=== PATIENT | female | born 1945 | race African-American/Black ===

== ENCOUNTER 2019-09-25 20:48 | Observation (INO) | payer MEDICARE ==
[2019-09-25] MEDS ORDERED: niCARdipine 20MG In NaCl 20 MG/200 ML BAG ONE (20:58)
[2019-09-25] MEDS ORDERED: Ondansetron ODT 4 MG TAB PO PRN (21:22)
[2019-09-25] MEDS ORDERED: Acetaminophen 325 MG TAB PO PRN (21:22)
[2019-09-25 22:00] LABS: #Lymphocytes 1.5 thou/uL (1.20-3.40); #Monocytes 0.7 thou/uL (0.11-0.59); #Neutrophils 4.4 thou/uL (1.40-6.50); %Basophils 0.4 % (0.0-1.0); %Eosinophils 0.6 % (0.0-10.0); %Lymphocytes 22.5 % (21.0-51.0); %Monocytes 10.2 % (0.0-10.0); %Neutrophils 66.2 % (42.0-75.0); Mean Corpuscular HGB CONC 31.5 g/dL (32.0-36.0); Mean Corpuscular Hemoglobin 27.7 pg (27.0-31.0); Mean Corpuscular Volume 87.9 fL (78.0-98.0); Mean Platelet Volume 9.9 fL (7.4-10.4); Platelet Count 193 thou/uL (130-400); RBC Distribution Width 15.7 % (11.5-14.5); Red Blood Cell (RBC) Count 5.77 mill/uL (4.20-5.40); White Blood Cell (WBC) Count 6.7 thou/uL (4.8-10.8)
[2019-09-25 22:11] LABS: ALT (SGPT) 8 U/L (8-55); AST (SGOT) 17 U/L (5-34); Albumin 3.9 g/dL (3.4-4.8); Alkaline Phosphatase 102 U/L (40-110); Anion Gap 14 mmol/L (10-20); BUN (Urea Nitrogen) 18 mg/dL (9.8-20.1); Bilirubin, Total 0.5 mg/dL (0.2-1.2); Calc. Creatinine Clearance 0 mL/min (70-130); Calcium 9.4 mg/dL (7.8-10.44); Carbon Dioxide 28 mmol/L (23-31); Chloride 98 mmol/L (98-107); Estimated GFR-MDRD 87; Globulin 3.5 g/dL (2.4-3.5); Glucose 130 mg/dL (83-110); Potassium 4.2 mmol/L (3.5-5.1); Protein, Total 7.4 g/dL (6.0-8.3); Sodium 136 mmol/L (136-145)
--- NOTE | 2019-09-25 22:49 | HP ---
CHIEF COMPLAINT: Dizziness. HISTORY OF PRESENT ILLNESS: Ms. Ferreira is a 73-year-old female with past medical history of rheumatoid arthritis, presented to [facility] with dizziness, nausea, vomiting, and headache. On arrival to the emergency room, blood pressure was 281/139. CT of the brain was reported as normal. The patient denies chest pain. Initially in the emergency room in [place], the patient received IV labetalol. When the patient arrived to our emergency department, her blood pressure was 222/115. The patient was started on IV Cardene drip. Symptoms are slightly improving. Cardiac enzymes were not ordered, just ordered now, would follow the results. Chest x-ray also was not done earlier. We will order and follow the results. The patient is being admitted to hospital for further management. PAST MEDICAL HISTORY: Rheumatoid arthritis. PAST SURGICAL HISTORY: Reviewed and not pertinent. FAMILY HISTORY: Reviewed and noncontributory. SOCIAL HISTORY: She is a smoker, smokes 1 pack per day. Denies alcohol drinking or drug abuse. HOME MEDICATIONS: Please see home medication reconciliation form for updated medications. ALLERGIES: NO KNOWN ALLERGIES. REVIEW OF SYSTEMS: Review of 14 systems negative except what is mentioned in history of present illness. PHYSICAL EXAMINATION: VITAL SIGNS: Blood pressure is 194/111, pulse is 62, respiratory rate is 22, oxygen saturation 97% on room air. HEAD AND NECK: Normocephalic, atraumatic. NECK: Supple. No JVD. CHEST: Fair bilateral air entry. HEART: S1, S2. Regular. ABDOMEN: Soft, nontender. Bowel sounds present. NEUROLOGIC: Awake, alert, and oriented x3. No focal neurological deficit. PSYCHIATRIC: Unable to assess. EXTREMITIES: No clubbing, no cyanosis. GENITOURINARY: No suprapubic tenderness. No flank tenderness. LABORATORY DATA: WBC 5.5, hemoglobin 16.7, platelets 244. Sodium 140, potassium 4.0, BUN 19, creatinine 0.8. CT of the brain as mentioned above in history of present illness. EKG showed left ventricular hypertrophy. ASSESSMENT: 1. Hypertensive emergency. 2. Dizziness. 3. Headache. 4. Rheumatoid arthritis. 5. Cigarette smoker. PLAN: 1. Admit to CCU. 2. Continue with IV Cardene drip, target systolic blood pressure 180 to 190. 3. Troponins, cardiac enzymes just ordered, to follow the results. 4. Chest x-ray ordered, to follow the results. 5. Reconcile home medications. 6. DVT prophylaxis as appropriate. 7. Expected length of stay, 2 midnights or more. Job ID: [id number]
[2019-09-25 22:51] LABS: CKMB 4.1 ng/mL (0-6.6)
[2019-09-25] MEDS ORDERED: niCARdipine 25 MG in Sodium Chloride 0.9% 250 ML 240 ML IVPB SCH (23:00)
[2019-09-25 23:12] VITALS: BMI 20.2
[2019-09-26 04:28] LABS: Band 4 % (5-11); Hemoglobin 14.8 g/dL (12.0-16.0); Lymphocytes 26 % (21-51); MDiff Complete? YES; Mean Corpuscular HGB CONC 31.2 g/dL (32.0-36.0); Mean Corpuscular Hemoglobin 27.7 pg (27.0-31.0); Mean Corpuscular Volume 88.8 fL (78.0-98.0); Mean Platelet Volume 10.3 fL (7.4-10.4); Monocytes 13 % (0-10); Neutrophil 57 % (42-75); Platelet Count 185 thou/uL (130-400); Platelet Morphology Comment Appears Adequate; RBC Distribution Width 15.7 % (11.5-14.5); Red Blood Cell (RBC) Count 5.33 mill/uL (4.20-5.40); White Blood Cell (WBC) Count 5.8 thou/uL (4.8-10.8)
[2019-09-26 04:29] LABS: Anion Gap 13 mmol/L (10-20); BUN (Urea Nitrogen) 21 mg/dL (9.8-20.1); Calc. Creatinine Clearance 54 mL/min (70-130); Carbon Dioxide 26 mmol/L (23-31); Chloride 103 mmol/L (98-107); Estimated GFR-MDRD Greater than 90; Glucose 108 mg/dL (83-110); Potassium 3.7 mmol/L (3.5-5.1); Sodium 138 mmol/L (136-145)
[2019-09-26 04:32] LABS: Troponin I 0.039 ng/mL (< 0.028)
[2019-09-26 07:10] LABS: Troponin I 0.036 ng/mL (< 0.028)
--- NOTE | 2019-09-26 07:39 | RAD ---
FRONTAL RADIOGRAPH CHEST: DATE: 09/25/2019. COMPARISON: None. HISTORY: Dizziness with nausea, headache, and hypertension. FINDINGS: Increased linear interstitial density noted in the perihilar regions in both lung bases, left greater than right. Findings may be on the basis of interstitial edema or interstitial infectious pneumonit is. No lobar consolidation, pneumothorax, or large volume pleural effusion. There is prominence of the cardiac silhouette. IMPRESSION: Prominence of the cardiac silhouette with nonspecific perihilar and bibasilar interstitial prominence , left greater than right. POS: [facility]
[2019-09-26] MEDS: Famotidine 20 MG TAB PO SCH ×2 (09:29→20:08)
[2019-09-26] MEDS ORDERED: Amlodipine 10 MG TAB PO SCH (10:15)
--- NOTE | 2019-09-26 10:37 | CON ---
DATE OF CONSULTATION: 09/26/2019 REASON FOR CONSULTATION: Critical care management of hypertensive emergency. HISTORY OF PRESENT ILLNESS: The patient is a 73-year-old female, who presented to [facility] yesterday with extreme hypertension. This had been measured by the nurse who had come by the patient's home. The patient has never been diagnosed with hypertension before. Initial blood pressure measured 281/139. She was on a Cardene drip, which looks like it has been stopped this morning. Her main complaint was headache. No chest pain. No shortness of breath. PAST MEDICAL HISTORY: Rheumatoid arthritis. PAST SURGICAL HISTORY: None. FAMILY MEDICAL HISTORY: Unremarkable. SOCIAL HISTORY: Smokes a pack and a half a day. Drinks whiskey at night. ALLERGIES: NONE. REVIEW OF SYSTEMS: Otherwise negative for arthritic deformities in her hands and feet. MEDICATIONS: Prior to admission, Aleve. PHYSICAL EXAMINATION: VITAL SIGNS: Temperature 98.9, pulse 72, blood pressure 132/63, and O2 sat 98%. GENERAL: She is awake, alert, no distress. HEENT: Unremarkable. NECK: No adenopathy or JVD. CHEST: Few crackles in the bases. CARDIAC: S1 and S2 regular without murmur. ABDOMEN: Soft and nontender. EXTREMITIES: She has RA changes in all the joints in her hands. She has severely deformed toes. LABORATORY DATA: White blood cell count 5.8, hematocrit 47.4, and platelet count 185. Sodium 138, potassium 3.7, BUN 21, creatinine 0.7, and glucose 108. ASSESSMENT: Hypertension with urgency. PLAN: It looks like she is off nicardipine drip. I would probably go ahead and start her on some Norvasc and transfer her to the floor. Job ID: [id number]
--- NOTE | 2019-09-26 16:53 | PDOC.HOSPP ---
- Subjective Encounter Date: 09/26/19 Encounter Time: 16:45 Subjective: f/u for HTN urgency on previous Cardene gtt now on Amlodipine. No new complaints. - Objective Vital Signs & Weight: Vital Signs (12 hours) Temp Pulse Resp BP BP BP Pulse Ox 09/26/19 15:45 98.4 F 68 20 173/89 H 95 09/26/19 14:59 69 171/85 H 09/26/19 12:10 98.2 F 68 22 H 185/87 H 94 L 09/26/19 11:00 98.8 F 09/26/19 10:50 72 162/78 H 09/26/19 08:00 98.9 F 100 Weight Admit Weight 114 lb Weight 114 lb Most Recent Monitor Data Heart Rate from ECG 72 NIBP 167/83 NIBP BP-Mean 111 Respiration from ECG 24 SpO2 99 I&O: 09/25/19 09/26/19 09/27/19 06:59 06:59 06:59 Intake Total 280 971 Output Total 200 250 Balance 80 721 Result Diagrams: 09/26/19 03:15 09/26/19 03:15 Radiology Reviewed by me: Yes (PCXR - bilat interstitial prominence) EKG Reviewed by me: Yes (Tele - SR) Hospitalist ROS - Medication Medications: Active Medications Generic Name Dose Route Start Last Admin Trade Name Namq PRN Reason Stop Dose Admin Famotidine 20 mg 09/26/19 09:00 09/26/19 09:29 Pepcid PO 20 mg BID ROHITH Administration Sodium Chloride 10 ml 09/26/19 09:00 09/26/19 09:29 Flush - Normal Saline IVF 10 ml Q12HR ROHITH Administration - Exam General Appearance: NAD, awake alert Eye: PERRL, anicteric sclera ENT: normocephalic atraumatic, no oropharyngeal lesions Neck: supple, symmetric, no JVD, no thyromegaly Heart: RRR, no murmur, no gallops, no rubs, normal peripheral pulses Heart - other findings: S1, S2 Respiratory: CTAB, no wheezes, no rales, no ronchi, normal chest expansion Gastrointestinal: soft, non-tender, non-distended, normal bowel sounds, no palpable masses Extremities: no cyanosis, no clubbing, no edema Skin: normal turgor, no lesions Neurological: cranial nerve grossly intact, no new deficit Musculoskeletal: normal tone, generalized weakness Psychiatric: normal affect, A&O x 3 Hosp A/P (1) Hypertensive urgency Code(s): I16.0 - HYPERTENSIVE URGENCY Status: Acute Plan: Resolving, add Hydralazine 25mg po TID, continue Amlodipine 10mg daily, serial BP monitoring, check 2D echo (2) NSTEMI (non-ST elevated myocardial infarction) Code(s): I21.4 - NON-ST ELEVATION (NSTEMI) MYOCARDIAL INFARCTION Status: Acute Plan: Suspected Type II SD, continue mgmt of BP, add ASA 81mg daily, check FLP (3) Tobacco abuse Code(s): Z72.0 - TOBACCO USE Status: Chronic Plan: Tobacco cessation resources (4) Dizziness Code(s): R42 - DIZZINESS AND GIDDINESS Status: Acute Plan: Secondary to #1, supportive, BP mgmt - Plan healthcare social worker, out of bed/ambulate, DVT proph w/SCDs Stable currently Continue Amlodipine 10mg po daily Start Hydralazine 25mg TID Check 2D echo AM lab: TSH, Mg++, Lipid profile
[2019-09-26] MEDS ORDERED: hydrALAZINE 25 MG TAB PO SCH (17:00)
[2019-09-26] MEDS: hydrALAZINE 25 MG TAB PO SCH (20:08)
[2019-09-27 05:21] LABS: Cardiac Risk 2.4 (Less than 4.5); Magnesium 2.1 mg/dL (1.6-2.6)
[2019-09-27] MEDS: Famotidine 20 MG TAB PO SCH ×2 (08:14→20:48)
[2019-09-27] MEDS: Amlodipine 10 MG TAB PO SCH (08:14)
[2019-09-27] MEDS: hydrALAZINE 25 MG TAB PO SCH ×3 (08:14→20:48)
--- NOTE | 2019-09-27 18:23 | PDOC.HOSPP ---
- Subjective Encounter Date: 09/27/19 Encounter Time: 10:30 Subjective: pt up in bed still has dizziness when she gets up - Objective Vital Signs & Weight: Vital Signs (12 hours) Temp Pulse Resp BP Pulse Ox 09/27/19 16:14 79 09/27/19 16:00 98.6 F 76 17 182/84 H 93 L 09/27/19 12:00 97.6 F 79 16 140/70 97 09/27/19 08:14 73 09/27/19 08:00 97.4 F L 79 17 140/82 96 Weight Admit Weight 114 lb Weight 105 lb 8 oz Most Recent Monitor Data Heart Rate from ECG 72 NIBP 167/83 NIBP BP-Mean 111 Respiration from ECG 24 SpO2 99 I&O: 09/26/19 09/27/19 09/28/19 06:59 06:59 06:59 Intake Total 280 1171 480 Output Total 200 650 300 Balance 80 521 180 Result Diagrams: 09/26/19 03:15 09/26/19 03:15 Hospitalist ROS - Review of Systems Cardiovascular: denies: chest pain, palpitations, orthopnea, paroxysmal noc. dyspnea, edema, light headedness, other Gastrointestinal: denies: nausea, vomiting, abdominal pain, diarrhea, constipation, melena, hematochezia, other Genitourinary: denies: dysuria, frequency, incontinence, hematuria, retention, other Musculoskeletal: denies: neck pain, shoulder pain, arm pain, back pain, hand pain, leg pain, foot pain, other - Medication Medications: Active Medications Generic Name Dose Route Start Last Admin Trade Name Freq PRN Reason Stop Dose Admin Acetaminophen 650 mg 09/25/19 21:22 09/27/19 18:13 Tylenol PO 650 mg Q4H PRN Administration Headache/Fever/Mild Pain (1-3) Amlodipine Besylate 10 mg 09/27/19 09:00 09/27/19 08:14 Norvasc PO 10 mg DAILY ROHITH Administration Famotidine 20 mg 09/26/19 09:00 09/27/19 08:14 Pepcid PO 20 mg BID ROHITH Administration Hydralazine HCl 25 mg 09/26/19 21:00 09/27/19 16:14 Apresoline PO 25 mg TID ROHITH Administration Sodium Chloride 10 ml 09/26/19 09:00 09/27/19 08:15 Flush - Normal Saline IVF 10 ml Q12HR ROHITH Administration - Exam Neck: negative: supple, symmetric, no JVD, no thyromegaly, no lymphadenopathy, no carotid bruit, JVD Heart: negative: RRR, no murmur, no gallops, no rubs, normal peripheral pulses, irregular, diminshed peripheral pulses, murmur present, II/IV, III/IV Respiratory: negative: CTAB, no wheezes, no rales, no ronchi, normal chest expansion, no tachypnea, normal percussion, rales, rhonchi, tachypneic, wheezes Hosp A/P (1) Rheumatoid arthritis Code(s): M06.9 - RHEUMATOID ARTHRITIS, UNSPECIFIED Status: Acute (2) Dizziness Code(s): R42 - DIZZINESS AND GIDDINESS Status: Acute (3) Hypertensive urgency Code(s): I16.0 - HYPERTENSIVE URGENCY Status: Acute (4) Tobacco abuse Code(s): Z72.0 - TOBACCO USE Status: Chronic - Plan Hosp A/P (1) Hypertensive urgency Code(s): I16.0 - HYPERTENSIVE URGENCY Status: Acute Plan: Resolving, add Hydralazine 25mg po TID, continue Amlodipine 10mg daily, serial BP monitoring, check 2D echo (2) NSTEMI (non-ST elevated myocardial infarction) Code(s): I21.4 - NON-ST ELEVATION (NSTEMI) MYOCARDIAL INFARCTION Status: Acute Plan: Suspected Type II [place], continue mgmt of BP, add ASA 81mg daily, check FLP (3) Tobacco abuse Code(s): Z72.0 - TOBACCO USE Status: Chronic Plan: Tobacco cessation resources (4) Dizziness Code(s): R42 - DIZZINESS AND GIDDINESS Status: Acute Plan: Secondary to #1, supportive, BP mgmt - Plan social worker health services, out of bed/ambulate, DVT proph w/SCDs Stable currently Continue Amlodipine 10mg po daily Start Hydralazine 25mg TID Check 2D echo AM lab: TSH, Mg++, Lipid profile 09/26 pt still has dizziness, will get orthostatic bp. will get mri brain and echo pending. Pt is not on any RA meds and has significant joint deformity. when i asked her who her veterinary microbiologist is she states she does not have one since she has to pay 30$ copay. she only takes aleve. bp has improved.
[2019-09-28] MEDS: Famotidine 20 MG TAB PO SCH ×2 (08:38→21:54)
[2019-09-28] MEDS: hydrALAZINE 25 MG TAB PO SCH (08:38)
[2019-09-28] MEDS: Amlodipine 10 MG TAB PO SCH (08:38)
--- NOTE | 2019-09-28 09:14 | ULT ---
BILATERAL CAROTID DUPLEX ULTRASOUND: DATE: 09/28/2019 HISTORY: Dizziness. TECHNIQUE: Pena scale ultrasound with color flow and spectral Doppler imaging of the extracranial carotid artery systems performed bilaterally. FINDINGS: There is plaque formation on either side. The peak systolic velocity in the right ICA measures 46 cm/second with an end-diastolic velocity of 1 0 cm/second and a systolic ratio of 0.56. The peak systolic velocity in the left ICA measures 75 cm/second with an end-diastolic velocity of 13 cm/second and a systolic ratio of 1.02. Flow in both vertebral arteries remains antegrade. IMPRESSION: No evidence of hemodynamically significant stenosis. POS: OFF
[2019-09-28] MEDS ORDERED: Lorazepam 2 MG/ML VIAL SLOW IVP SCH (11:00)
--- NOTE | 2019-09-28 12:19 | MRI ---
MRI BRAIN WITHOUT CONTRAST: Date: 09/28/2019 HISTORY: Dizziness. FINDINGS: Correlation is made with the CT scan of 09/25/2019. No restricted diffusion is seen. Deep white matter changes are seen, consistent with chronic small ve ssel ischemic disease. No evidence of infarct, hemorrhage, midline shift, or abnormal extra-axial flu id collections are noted. The visualized paranasal sinuses appear well aerated. IMPRESSION: No evidence of acute intracranial process. POS: OFF
[2019-09-28] MEDS: Meclizine HCl 25 MG TAB PO SCH ×2 (14:48→21:54)
--- NOTE | 2019-09-28 15:14 | PDOC.HOSPP ---
- Subjective Encounter Date: 09/28/19 Encounter Time: 11:00 Subjective: pt up in bed still feels dizzy - Objective Vital Signs & Weight: Vital Signs (12 hours) Temp Pulse Resp BP BP BP Pulse Ox 09/28/19 09:46 168/76 H 174/80 H 179/76 H 09/28/19 08:38 82 09/28/19 08:00 96.4 F L 82 18 145/82 H 95 Weight Admit Weight 114 lb Weight 105 lb 3.2 oz Most Recent Monitor Data Heart Rate from ECG 72 NIBP 167/83 NIBP BP-Mean 111 Respiration from ECG 24 SpO2 99 I&O: 09/27/19 09/28/19 09/29/19 06:59 06:59 06:59 Intake Total 1171 780 Output Total 650 900 Balance 521 -120 Result Diagrams: 09/26/19 03:15 09/26/19 03:15 Hospitalist ROS - Review of Systems Respiratory: denies: cough, dry, shortness of breath, hemoptysis, SOB with excertion, pleuritic pain, sputum, wheezing, other Cardiovascular: reports: other (dizziness) Gastrointestinal: denies: nausea, vomiting, abdominal pain, diarrhea, constipation, melena, hematochezia, other Genitourinary: denies: dysuria, frequency, incontinence, hematuria, retention, other - Medication Medications: Active Medications Generic Name Dose Route Start Last Admin Trade Name Freq PRN Reason Stop Dose Admin Acetaminophen 650 mg 09/25/19 21:22 09/27/19 18:13 Tylenol PO 650 mg Q4H PRN Administration Headache/Fever/Mild Pain (1-3) Famotidine 20 mg 09/26/19 09:00 09/28/19 08:38 Pepcid PO 20 mg BID ROHITH Administration Meclizine HCl 25 mg 09/28/19 14:00 09/28/19 14:48 Antivert PO 25 mg Q8HR ROHITH Administration Sodium Chloride 10 ml 09/26/19 09:00 09/28/19 08:39 Flush - Normal Saline IVF 10 ml Q12HR ROHITH Administration - Exam ENT - other findings: dizziness on turning to righ side. Heart: negative: RRR, no murmur, no gallops, no rubs, normal peripheral pulses, irregular, diminshed peripheral pulses, murmur present, II/IV, III/IV Respiratory: negative: CTAB, no wheezes, no rales, no ronchi, normal chest expansion, no tachypnea, normal percussion, rales, rhonchi, tachypneic, wheezes Gastrointestinal: negative: soft, non-tender, non-distended, normal bowel sounds , no palpable masses, no hepatomegaly, no splenomegaly, no bruit, no guarding, no rigidity, tender to palpation, distended, diminished bowl sounds, voluntary guarding Hosp A/P (1) Rheumatoid arthritis Code(s): M06.9 - RHEUMATOID ARTHRITIS, UNSPECIFIED Status: Acute (2) Dizziness Code(s): R42 - DIZZINESS AND GIDDINESS Status: Acute (3) Hypertensive urgency Code(s): I16.0 - HYPERTENSIVE URGENCY Status: Acute (4) Tobacco abuse Code(s): Z72.0 - TOBACCO USE Status: Chronic - Plan Hosp A/P (1) Hypertensive urgency Code(s): I16.0 - HYPERTENSIVE URGENCY Status: Acute Plan: Resolving, add Hydralazine 25mg po TID, continue Amlodipine 10mg daily, serial BP monitoring, check 2D echo (2) NSTEMI (non-ST elevated myocardial infarction) Code(s): I21.4 - NON-ST ELEVATION (NSTEMI) MYOCARDIAL INFARCTION Status: Acute Plan: Suspected Type II [place], continue mgmt of BP, add ASA 81mg daily, check FLP (3) Tobacco abuse Code(s): Z72.0 - TOBACCO USE Status: Chronic Plan: Tobacco cessation resources (4) Dizziness Code(s): R42 - DIZZINESS AND GIDDINESS Status: Acute Plan: Secondary to #1, supportive, BP mgmt - Plan executive secretary social welfare, out of bed/ambulate, DVT proph w/SCDs Stable currently Continue Amlodipine 10mg po daily Start Hydralazine 25mg TID Check 2D echo AM lab: TSH, Mg++, Lipid profile 09/26 pt still has dizziness, will get orthostatic bp. will get mri brain and echo pending. Pt is not on any RA meds and has significant joint deformity. when i asked her who her veneer department manager is she states she does not have one since she has to pay 30$ copay. she only takes aleve. bp has improved. 09/27 mri brain normal. carotid doppler negative. will start her on meclizine if her dizziness does not improve will do CTA. will also space out her bp meds
[2019-09-29] MEDS: Meclizine HCl 25 MG TAB PO SCH (05:46)
[2019-09-29 08:17] VITALS: BP 145/82; TEMP 96.2
[2019-09-29] MEDS: Famotidine 20 MG TAB PO SCH (08:39)
[2019-09-29] MEDS ORDERED: Aspirin 81 mg Enteric Coated Tablet PO SCH (09:00)
[2019-09-29] MEDS ORDERED: Amlodipine 5 MG TAB PO SCH (09:00)
--- NOTE | 2019-09-29 21:27 | DIS ---
DATE OF ADMISSION: 09/25/2019 DATE OF DISCHARGE: 09/29/2019 DISCHARGE DIAGNOSES: As of the followin. Hypertensive urgency. 2. Rheumatoid arthritis, not treated. 3. Dizziness, resolved. 4. Tobacco abuse. HOSPITAL COURSE: The patient is a 73-year-old female who initially presented to the hospital with dizziness and was found to be hypertensive. At this time, she underwent an MRI brain which was negative. CT head was negative. Carotid Dopplers were negative. Echocardiogram indicated an EF of 55% to 60% with some diastolic dysfunction. The patient continued to improve through the hospital stay. When she was put on meclizine, her dizziness improved. The patient at this time was also put on blood pressure medications. She was initially admitted to the hospital in the ICU with a Cardene drip and then was titrated down and was put on oral medications. I have talked with the patient in detail about following up with utilization management nurse given severe deformity of her hands and her feet. The patient states that she does not want to do so, because she does not want to pay the co-pay. Also, I emphasized to her that she needs to see a primary care doctor since she does not follow one in regard to her blood pressure medications and also she will need an age based screening. The patient's thyroid was also stable. MEDICATIONS: She will be discharged home with the following medications: 1. Norvasc 5 mg twice daily. 2. Meclizine 25 mg q.8 hours p.r.n. 3. Metoprolol 12.5 q.12 hours. PHYSICAL EXAMINATION: VITAL SIGNS: On discharge, temperature is 98.5, 73, 20, 100% on room air, 145/82. GENERAL: She is awake, alert, and oriented x3. Does not appear in distress. CV: S1, S2 present. No murmurs, rubs, or gallops. Again, she will be discharged home. She will follow up with her primary. Job ID: [id number]
== END 2019-09-29 11:47 | disposition home or self-care (01) ==
LOC: ERS 20:48 → INTOOBSV 21:38 → CCU 21:38 → 2NO 09-26 12:13
PROVIDERS: ADMIT Internal Medicine; ATTEND Internal Medicine
DX: I16.0 Hypertensive urgency (principal); I10 Essential (primary) hypertension; M06.9 Rheumatoid arthritis, unspecified; R42 Dizziness and giddiness; I21.4 Non-ST elevation (NSTEMI) myocardial infarction; F17.210 Nicotine dependence, cigarettes, uncomplicated; Z79.1 Long term (current) use of non-steroidal anti-inflammatories (NSAID); Z88.0 Allergy status to penicillin
CPT/HCPCS: 70551; 71045; 80048; 80053; 80061; 82553; 83735; 83880; 84439; 84443; 84484 ×3; 85007; 85025; 85027; 93306; 93880; 96365; 96366; 96375; 96376; 99285; G0378 ×5; 36415; J2060; J7050